=== PATIENT | male | born 1930 | race Caucasian/White ===

== ENCOUNTER 2016-07-12 22:22 | Emergency (ER) | payer MEDICARE, BC ==
--- NOTE | 2016-07-12 23:14 | EDM.PDOC ---
ED HPI GI/ABDOMINAL - General Chief Complaint: Abdominal Pain Stated Complaint: ABD PAIN Time Seen by Provider: 07/12/16 22:40 Source: Reports: Patient, Family History Limitations: Reports: Other (? mild dementia) - History of Present Illness INITIAL COMMENTS - FREE TEXT/NARRATIVE: 85 yo male with a last BM last presents with abdominal distention and pain today. Appetite decreased. No fever. No vomiting. Symptom Onset Date: 07/12/16 Timing/Duration: Reports: Hour(s):, Getting worse, Gradual onset Location: generalized Quality: Reports: fullness Severity: moderate Improves with: Reports: other (none) Worsens with: Reports: other (? eating) Context: Reports: other (Hx of partial or complete bowel obstruction/ no BM for a few days.) Associated Symptoms: Reports: constipation, loss of appetite. Denies: diarrhea , bloody stools, fever/chills, nausea/vomiting Treatment(s) NURSE SUBSTANCE ABUSE: Reports: Other (see below) (none) - Related Data Allergies/ADRs: Allergies Allergy/AdvReac Type Severity Reaction Status Date / Time morphine AdvReac Lightheaded Verified 07/12/16 22:38 ness Home Meds: Home Meds .Maxivison 1 tab PO DAILY 05/08/14 [History] Aspirin [Adult Low Dose Aspirin EC] 81 mg PO DAILY 05/08/14 [History] Enalapril [Vasotec] 20 mg PO BID #0 tablet 05/16/14 [Rx] Hydrocortisone Acetate [Anusol-Hc] 25 mg RC DAILY PRN #20 supp.rect 05/17/14 [Rx ] Carboxymethylcellulose Sodium [Refresh Plus 0.5%] 1 each EYELF QID #15 ml [Rx] Omeprazole 20 mg PO DAILY@0600 #30 cap.sr 06/09/14 [Rx] Polyethylene Glycol 3350 [MiraLAX] 17 gm PO DAILY #30 packet 06/09/14 [Rx] metFORMIN [Glucophage] 1,000 mg PO BIDM #120 tablet 06/09/14 [Rx] Glimepiride [Amaryl] 2 mg PO DAILY 08/23/15 [History] [place]am-3 Fatty Acids [Fish Oil] 300 mg PO DAILY 07/12/16 [History] Past Medical History Gastrointestinal History: Reports: Other (see below) Other Gastrointestinal History: hx of colon problem Endocrine/Metabolic History: Reports: Diabetes, type II Other Oncologic History: oral cancer - Past Surgical History Other Oncologic Surgeries/Procedures: oral lip surgury Social & Family History - Tobacco Use Smoking Status *Q: Never Smoker Second Hand Smoke Exposure: No - Alcohol Use Days Per Week of Alcohol Use: 0 - Recreational Drug Use Recreational Drug Use: No - Living Situation & Occupation Living situation: Reports: Occupation: retired (lives in [facility] in [place], [place]) ED ROS GENERAL - Review of Systems Review Of Systems: See Below Constitutional: Reports: decreased appetite. Denies: fever, chills, malaise, fatigue, diaphoresis HEENT: Reports: No symptoms Respiratory: Reports: no symptoms Cardiovascular: Reports: No symptoms GI/Abdominal: Reports: Abdominal pain, Constipation, Decreased appetite, Distension. Denies: Black stool, Bloody stool, Diarrhea, Difficulty swallowing , Hematemesis, Hematochezia, Melena, Nausea, Stool incontinence, Vomiting : Reports: no symptoms Musculoskeletal: Reports: no symptoms Skin: Reports: no symptoms Neurological: Reports: no symptoms Psychiatric: Reports: No symptoms ED EXAM, GI/ABD - Physical Exam Exam: See Below General Appearance: alert, WD/WN, no apparent distress Eyes: bilateral: normal appearance Ears: normal external exam, normal canal, hearing grossly normal, normal TMs Nose: normal inspection, normal mucosa, no blood Throat/Mouth: Normal inspection, Normal lips, Normal teeth, Normal oropharynx, Normal voice, No airway compromise Head: atraumatic, normocephalic Neck: normal inspection, supple, non-tender Respiratory/Chest: no respiratory distress, lungs clear, normal breath sounds, no accessory muscle use Cardiovascular: regular rate, rhythm, no edema GI/Abdominal: soft, hyperactive bowel sounds, tenderness (mild, fairly soft), distention Back Exam: normal inspection Extremities: normal inspection, normal range of motion, non-tender, no pedal edema Neurological: alert, oriented, CN II-XII intact, normal cognition, no motor/ sensory deficits Psychiatric: normal affect, normal mood Skin Exam: Warm, Dry, Intact, Normal color, No rash Lymphatic: no adenopathy Course - Vital Signs Text/Narrative:: Flat and upright abdominal X-ray-large amount of air, ? hiatal hernia CT abd/pelvis with contrast-no acute pathology LR 150 ml/h IV, Reglan 10 mg IV, Zofran 4 mg IV, Simethicone 160 mg po-better after this. Last Recorded V/S: Last Vital Signs Temp 36.4 C 07/12/16 22:25 Pulse 66 07/12/16 22:25 Resp 18 07/12/16 22:25 BP 166/80 H 07/12/16 22:25 Pulse Ox 97 07/12/16 23:27 - Orders/Labs/Meds Orders: Active Orders 24 hr Category Date Time Status Oxygen Therapy, ED [RC] ASDIRECTED Care 07/12/16 23:27 Active Abdomen 2V AP Flat Upright [CR] Stat Exams 07/12/16 22:51 Taken Abdomen Pelvis w Cont [CT] Stat Exams 07/12/16 23:16 Taken Lactated Ringers [Ringers, Lactated] 1,000 ml Med 07/12/16 23:30 Active IV ASDIRECTED Medication Orders Lactated Ringer's (Ringers, Lactated) 1,000 mls @ 150 mls/hr IV ASDIRECTED JASWINDER Last Admin: 07/12/16 23:43 Dose: 150 mls/hr Labs: Laboratory Tests 07/12/16 07/12/16 Range/Units 23:25 23:25 WBC 6.9 (4.5-12.0) X10-3/uL RBC 4.30 (4.30-5.75) x10(6)uL Hgb 12.4 (11.5-15.5) g/dL Hct 37.5 (30.0-51.3) % MCV 87.2 (80-96) fL MCH 28.9 (27.7-33.6) pg MCHC 33.1 (32.2-35.4) g/dL RDW 12.5 (11.5-15.5) % Plt Count 219 (125-369) X10(3)uL Sodium 137 (135-145) mmol/L Potassium 4.4 (3.5-5.3) mmol/L Chloride 102 (100-110) mmol/L Carbon Dioxide 27 (23-29) mmol/L BUN 21 (8-23) mg/dL Creatinine 0.8 (0.6-1.3) mg/dL Est Cr Clr Drug Dosing 58.72 mL/min Estimated GFR (MDRD) > 60 (>60) BUN/Creatinine Ratio 26.3 H (9-20) Glucose 92 D (80-116) mg/dL Calcium 9.2 (8.6-10.2) mg/dL Meds: Medications Generic Name Dose Route Start Last Admin Trade Name Harman PRN Reason Stop Dose Admin Lactated Ringer's 1,000 mls @ 150 mls/hr 07/12/16 23:30 07/12/16 23:43 Ringers, Lactated IV 150 mls/hr ASDIRECTED JASWINDER Administration Discontinued Medications Generic Name Dose Route Start Last Admin Trade Name Harman PRN Reason Stop Dose Admin Iopamidol 75 ml 07/12/16 23:48 07/13/16 00:03 Isovue-370 (76%) IV 07/12/16 23:49 75 ml ONETIME ONE Administration Metoclopramide HCl 10 mg 07/12/16 23:16 07/12/16 23:44 Reglan IVPUSH 07/12/16 23:17 10 mg ONETIME ONE Administration Ondansetron HCl 4 mg 07/13/16 00:47 07/13/16 01:00 Zofran IVPUSH 07/13/16 00:48 4 mg ONETIME ONE Administration Simethicone 160 mg 07/13/16 00:47 07/13/16 01:06 Simethicone PO 07/13/16 00:48 160 mg NOW STA Administration Departure - Departure Time of Disposition: 01:25 Disposition: Home, Self-Care 01 Condition: fair Clinical Impression: Nausea, Gaseous abdominal distention Forms: ED Department Discharge - My Orders Last 24 Hours: My Active Orders 07/12/16 22:51 Abdomen 2V AP Flat Upright [CR] Stat 07/12/16 23:16 Abdomen Pelvis w Cont [CT] Stat 07/12/16 23:27 Oxygen Therapy, ED [RC] ASDIRECTED 07/12/16 23:30 Lactated Ringers [Ringers, Lactated] 1,000 ml IV ASDIRECTED - Assessment/Plan Last 24 Hours: My Active Orders 07/12/16 22:51 Abdomen 2V AP Flat Upright [CR] Stat 07/12/16 23:16 Abdomen Pelvis w Cont [CT] Stat 07/12/16 23:27 Oxygen Therapy, ED [RC] ASDIRECTED 03/13/17 23:30 Lactated Ringers [Ringers, Lactated] 1,000 ml IV ASDIRECTED
[2016-07-12] MEDS ORDERED: Metoclopramide 10 MG/2 ML SDV IVPUSH ONE (23:16)
[2016-07-12] MEDS ORDERED: Lactated Ringers 1,000 ML IV SCH (23:30)
[2016-07-12] MEDS ORDERED: Iopamidol 755 Mg/ML 75 ML Bottle IV ONE (23:48)
[2016-07-13] MEDS ORDERED: Simethicone 80 MG Tab.Chew PO STA (00:47)
[2016-07-13] MEDS ORDERED: Ondansetron 4 MG/2 ML SDV IVPUSH ONE (00:47)
[2016-07-13 02:04] VITALS: BP 150/69
--- NOTE | 2016-07-13 11:41 | CR ---
INDICATION: Abdominal distention with pain. ABDOMEN: Supine and upright views of the abdomen were obtained 07/12/2016 with 4 images, and compared with 08/23/2015. Six images were obtained on the present study. There is a relative paucity of gas in the rectosigmoid and rectal area. This raises question of an obstructive process at that level, which could be on the basis of neoplastic process or diverticulitis in that portion of the bowel. All small bowel loops are somewhat distended. The colon does not appear grossly distended. The possibility that this appearance is incidental - relative paucity of gas in the distalmost colon - should also be considered. A paralytic ileus may be present, as well as a mechanically obstructive process. Barium enema is recommended for further evaluation or possibly colonoscopy, depending upon clinical correlation. Also, CT examination may be warranted, depending upon clinical correlation. Otherwise, no organomegaly, mass lesions, or nonvascular pathologic calcifications were identified. 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 No definite free air is identified. IMPRESSION: Somewhat distended small bowel. Gas and stool is noted in the colon. Relative paucity of gas in the rectosigmoid-rectal area. Findings should be correlated clinically. Additional workup may be warranted. Overall appearance is fairly similar to the previous study of 08/23/2015. [facility]
== END 2016-07-13 01:45 | disposition home or self-care (01) ==
LOC: FB.ED 22:22
DX: R14.0 Abdominal distension (gaseous) (principal); E11.9 Type 2 diabetes mellitus without complications; R11.0 Nausea; Z88.6 Allergy status to analgesic agent
CPT/HCPCS: 36415; 74020; 74177; 80048; 85027; 96361; 96374; 96375; 99284; 99285; A9270; J2405; J2765; J7120; Q9967